=== PATIENT | female | born 1980 | race Caucasian/White ===

== ENCOUNTER 2016-05-27 11:40 | Inpatient (IN) | payer OTHER ==
--- NOTE | 2016-05-27 12:15 | OBPROG ---
OBG Progress Note Assessment/Plan: Assessment:cat 1 reactive reassuring pain well managed clear fluid intermittant monitoring declines augmentation for 8-12 h gbs negative Plan:admit/ reassess 8-12h after rom 05/27/16 12:13 Subjective: Doing well. denies contractions pain. Feeling tightening. Srom at 0900. - SVE Dilation (cm): 1 Effacement (%): Less than 50 Station: -2 Current Contraction Pattern: Irregular FHR Pattern Variability: Moderate FHR Category: 1 Membranes: SROM Amniotic Fluid Color: Clear ICD10 Worksheet Patient Problems: Problems Problem Status Onset srom at term Acute
[2016-05-27] MEDS ORDERED: LR 1,000 ML IV PRN (12:16)
[2016-05-27] MEDS ORDERED: EPSOM SALT 454 GM TP PRN (12:16)
[2016-05-27] MEDS ORDERED: LIDOCAINE 1% 30 ML SDV SC PRN (12:16)
[2016-05-27] MEDS ORDERED: OLIVE OIL 118 ML BTL MISC PRN (12:16)
[2016-05-27] MEDS ORDERED: TERBUTALINE SULFATE 1 MG/ML VIAL IV PRN (12:16)
[2016-05-27] MEDS ORDERED: OXYTOCIN/RINGERS LACTATE 1,000 ML IV PRN (12:16)
--- NOTE | 2016-05-27 12:49 | GHP ---
[f rep st] HISTORY AND PHYSICAL DATE OF ADMISSION: 05/27/2016 Patient comes into the office of [facility] on 05/27/2016 with complaints of rupture membr anes since 9:00. Rupture membranes was confirmed. Clear fluid. Positive ferning. Positive Nitraz ine. Plan of care was to Labor and delivery for delivery. The patient is a 1, para 0, 35-y ear-old, with an EDC of 05/24/2016 which gives her gestational age of 40-3/7 weeks. The patient is marsha every 3-4 minutes. Denies bloody show. Positive clear fluid. MEDICAL HISTORY: The patient has had a previous history of pancreatitis, previous history of PCOS. SURGICAL HISTORY: Tonsillectomy in years 1994, 1995 per patient, no significant problems after surg radha. GYNECOLOGICAL HISTORY: No abnormal Pap smears. Patient previous use of OCPs from the ages of [age] . HISTORY: Patient is rubella nonimmune. Patient is AMA. LABS: Patient is GBS negative. The patient is RPR nonreactive. Gonorrhea and chlamydia are negati ve. Hepatitis is negative. HIV is negative. Rubella is nonimmune. Waiting on the rest of the pre hudson, as well as labs to be drawn for blood type. ALLERGIES: Patient is not allergic to any medications. PHYSICAL ASSESSMENT: GENERAL: Patient is awake, alert, oriented x3. LUNGS: Clear bilaterally. A BDOMEN: Bowel sounds are positive in all 4 quadrants. NEUROLOGIC: DTRs are 1+ bilaterally. Charlette s sign is negative. ABDOMEN: Soft on palpation. PELVIC: Previous exam by physician Dr. Alina loya baby was cephalic. Exam was 150 and -2 on exam today in the office. PLAN OF CARE: The patient is GBS negative. We will wait for augmentation of labor for 8-12 hours p er patient request. At this time, patient would like intermittent monitoring, as well as no I V and patient is low risk. I think this is fine for plan of care. If induction is necessary, IV co ntinuous monitoring will be completed. Dr. Alina Germain is the physician responsible today since is on-call. /[id number]/MODL
[2016-05-27 15:54] LABS: % IMMATURE GRANULYOCYTES 0.5 % (0.0-1.1); ABSOLUTE IMMATURE GRANULOCYTES 0.06 10^3/uL (0.00-0.10); ADD DIFF? NO; ADD MORPH? NO; ADD SCAN? NO; ATYPICAL LYMPHOCYTE FLAG 0 (0-99); FRAGMENT RBC FLAG 0 (0-99); HEMATOCRIT 37.7 % (38.0-47.0); HEMOGLOBIN 13.2 g/dL (12.6-16.3); LEFT SHIFT FLG 0 (0-99); LIPEMIA HEMOLYSIS FLAG 90 (0-99); MEAN CELL HEMOGLOBIN 32.6 pg (27.9-34.1); MEAN CELL VOLUME 93.1 fL (81.5-99.8); MEAN PLATELET VOLUME 10.1 fL (8.7-11.7); PLATELET CLUMPS FLAG 0 (0-99); PLATELET COUNT 235 10^3/uL (150-400); RED BLOOD CELL COUNT 4.05 10^6/uL (4.18-5.33); RED CELL DISTRIBUTION WIDTH 13.2 % (11.5-15.2)
--- NOTE | 2016-05-27 17:09 | OBPROG ---
OBG Progress Note Assessment/Plan: Assessment:cat 1 reactive reassuring pain well managed clear fluid 20 minutes of monitoring before getting into the tub cat 1 exam 3-4/100/-2 cephalic marsha q2-3 minutes gbs negative Plan:expectant management of labor 05/27/16 12:13 05/27/16 17:07 Subjective: coping well. Having greater difficulty getting through the contractions reassured Objective: 05/27/16 15:45 Patient ABO/Rh AB POSITIVE 05/27/16 Unknown - SVE Dilation (cm): 3 Effacement (%): 100 Station: -2 Current Contraction Pattern: Regular FHR (bpm): 125 FHR Pattern Variability: Moderate FHR Category: 1 Membranes: SROM Amniotic Fluid Color: Clear ICD10 Worksheet Patient Problems: Problems Problem Status Onset srom at term Acute
[2016-05-27] MEDS ORDERED: AMMONIA AROMATIC 1 EACH AMP IH ONE (17:23)
[2016-05-27] MEDS ORDERED: OLIVE OIL 118 ML BTL ONE (17:23)
[2016-05-27] MEDS ORDERED: LIDOCAINE 1% 30 ML SDV ONE (17:23)
[2016-05-27] MEDS ORDERED: MISOPROSTOL 200 MCG TAB ONE (17:23)
[2016-05-27] MEDS ORDERED: TERBUTALINE SULFATE 1 MG/ML VIAL ONE (17:23)
[2016-05-27] MEDS ORDERED: ONDANSETRON 4 MG/2 ML VIAL IVP ONE (19:39)
--- NOTE | 2016-05-27 19:42 | OBPROG ---
OBG Progress Note Assessment/Plan: Assessment:135 doppler intermittant monitoring pain well managed clear fluid changing positions frequently exam 6/100/-2 cephalic marsha q2-3 minutes gbs negative nitorus for pain relief Plan:expectant management of labor 05/27/16 12:13 05/27/16 17:07 05/27/16 19:40 Subjective: Requesting pain medication to assist with pain relief. Choosing to do nitrous to assist. Call to respiratory to assist with patient use of nitrous Objective: 05/27/16 15:45 Patient ABO/Rh AB POSITIVE 05/27/16 Unknown - SVE Dilation (cm): 6 Effacement (%): 100 Station: -2 Current Contraction Pattern: Regular FHR (bpm): 135 Amniotic Fluid Color: Clear ICD10 Worksheet Patient Problems: Problems Problem Status Onset srom at term Acute
[2016-05-27] MEDS ORDERED: BUPIVACAINE 0.25% 30 ML SDV ONE (22:54)
[2016-05-27] MEDS ORDERED: fentaNYL 2MCG/ML/BUP 0.1% RTU 100 ML BAG EP ONE (22:54)
[2016-05-27] MEDS ORDERED: PHENYLEPHRINE HCL 100 MCG/ML SYR ONE (22:55)
[2016-05-27] MEDS ORDERED: fentaNYL 100 MCG/2 ML INJ ONE (22:55)
[2016-05-27] MEDS ORDERED: PHENYLEPHRINE HCL 100 MCG/ML SYR IVP PRN (23:38)
[2016-05-27] MEDS ORDERED: ONDANSETRON 4 MG/2 ML VIAL IVP PRN (23:38)
[2016-05-27] MEDS ORDERED: NALOXONE HCL 0.4 MG/ML INJ IVP PRN (23:38)
[2016-05-27] MEDS ORDERED: fentaNYL 2MCG/ML/BUP 0.1% RTU 100 ML EP SCH (23:45)
[2016-05-27] MEDS ORDERED: LR 500 ML IV SCH (23:45)
--- NOTE | 2016-05-27 23:56 | OBPROG ---
OBG Progress Note Assessment/Plan: Assessment:continuous monitoring pain well managed after epidural clear fluid changing positions frequently exam 8/90/0 cephalic marsha q2-3 minutes gbs negative OP epidural crawl for position change Plan:expectant management of labor 05/27/16 12:13 05/27/16 17:07 05/27/16 19:40 05/27/16 23:54 Subjective: Epidural for pain relief at patient request Objective: 05/27/16 15:45 Patient ABO/Rh AB POSITIVE 05/27/16 Unknown - SVE Dilation (cm): 8 Effacement (%): 90 Station: -1 Current Contraction Pattern: Regular FHR Pattern Variability: Moderate FHR Category: 1 Membranes: Intact ICD10 Worksheet Patient Problems: Problems Problem Status Onset srom at term Acute
--- NOTE | 2016-05-28 01:29 | OBPROG ---
OBG Progress Note Assessment/Plan: Assessment:continuous monitoring pain well managed after epidural clear fluid changing positions frequently exam 9/90/0 cephalic marsha q2-3 minutes gbs negative OP late deceleration noted exam some change in cervix will recheck when feeling some pressure cat 2 fhr Plan:expectant management of labor 05/27/16 12:13 05/27/16 17:07 05/27/16 19:40 05/27/16 23:54 05/28/16 01:26 05/28/16 01:28 Subjective: Comfortable with epidural Objective: 05/27/16 15:45 Patient ABO/Rh AB POSITIVE 05/27/16 Unknown - SVE Dilation (cm): 9 Effacement (%): 90 Station: 0 Current Contraction Pattern: Regular FHR (bpm): 145 FHR Pattern Variability: Moderate FHR Category: 2 Membranes: SROM Amniotic Fluid Color: Clear ICD10 Worksheet Patient Problems: Problems Problem Status Onset srom at term Acute
[2016-05-28] MEDS ORDERED: ACETAMINOPHEN 500 MG TAB PO ONE (04:49)
[2016-05-28] MEDS ORDERED: OXYTOCIN/RINGERS LACTATE 500 ML IV SCH (05:00)
[2016-05-28] MEDS ORDERED: GENTAMICIN PHARMACY TO DOSE MISC SCH (05:00)
--- NOTE | 2016-05-28 05:01 | OBPROG ---
OBG Progress Note Assessment/Plan: Assessment:continuous monitoring pain well managed with epidural clear fluid changing positions frequently exam / cephalic caput and molding with this exam marsha q3-5 minutes iupc placed to assist with measurement of the strength of the contraction gbs negative OP prolonged variable deceleration with exam consult dr. trevor davis cat 2 fhr febrile Plan:pitocin per protocol, antibiotics for prolonged rom, tylenol 1g now 05/27/16 12:13 05/27/16 17:07 05/27/16 19:40 05/27/16 23:54 05/28/16 01:26 05/28/16 01:28 05/28/16 04:57 Subjective: patient numb with epidural. Legs very heavy warm to the touch with exam Objective: 05/27/16 15:45 Patient ABO/Rh AB POSITIVE 05/27/16 Unknown - SVE Dilation (cm): 9 Effacement (%): 90 Station: 0 Current Contraction Pattern: Regular FHR (bpm): 145 FHR Pattern Variability: Moderate FHR Category: 2 Amniotic Fluid Color: Blood Tinged ICD10 Worksheet Patient Problems: Problems Problem Status Onset srom at term Acute
[2016-05-28] MEDS ORDERED: NS 100 ML BAG (MINI-BAG) IV ONE (05:07)
[2016-05-28] MEDS: AMPICILLIN SODIUM 2 GM in NS 100 ML IV SCH ×4 (05:12→23:46)
[2016-05-28] MEDS ORDERED: GENTAMICIN 80 MG/NACL 100 ML IV SCH (05:30)
[2016-05-28] MEDS: GENTAMICIN SULFATE IV SCH (05:51)
[2016-05-28] MEDS: D5W IV SCH (05:51)
--- NOTE | 2016-05-28 09:23 | OBPROG ---
OBG Progress Note Assessment/Plan: Assessment: Plan: Subjective: I was called into the room to evaluate patient after a decel to the 50s. pitocin was at 8 mu. pitocin was off. return to baseline with good variability. meconium fluid noted. patient very tearful and frustrated. worried that getting an epidural was the cause of this. reassurance given. will restart pitocin as needed and continue repositioning. discussed will only do a c section if absolutely indicated. Objective: 05/27/16 15:45 Patient ABO/Rh AB POSITIVE 05/27/16 Unknown - SVE Dilation (cm): 8 Effacement (%): 90 Station: -1 Current Contraction Pattern: Regular FHR Pattern Variability: Moderate FHR Category: 2 ICD10 Worksheet Patient Problems: Problems Problem Status Onset srom at term Acute
--- NOTE | 2016-05-28 11:19 | OBPROG ---
OBG Progress Note Assessment/Plan: Assessment: Plan: Subjective: patient was feeling more pressure. status was reassuring. SVE 8/100/- 1. narrow pubic arch and prominent ischial spines. large amount of thick meconium stained fluid noted. fhts decels to 70s with return to baseline after two minutes. fhts returned to baseline. pitocin. long discussion with patient and her about management options. initially decided that they wanted to restart pitocin when able and wait 2 more hours and reassess. shortly after that variable decels with contractions noted. decles to the 80s. contractions still very spaced and would need pitocin but because of decels it is not safe to start. discussed suspected cpd and intolerance of labor. will proceed with PLTCS. Objective: 05/27/16 15:45 Patient ABO/Rh AB POSITIVE 05/27/16 Unknown - SVE Dilation (cm): 8 Effacement (%): 90 Station: -2 Current Contraction Pattern: Irregular FHR Category: 2 Amniotic Fluid Color: Meconium Stained-Heavy ICD10 Worksheet Patient Problems: Problems Problem Status Onset srom at term Acute
[2016-05-28] MEDS ORDERED: LIDO/EPI 2% **for epidural** 20 ML SDV ONE ×2 (11:27→13:15)
[2016-05-28] MEDS ORDERED: fentaNYL 100 MCG/2 ML INJ ONE (11:28)
[2016-05-28] MEDS ORDERED: ceFAZolin 2 GM/DEXTROSE 100 ML IV ONE (11:59)
[2016-05-28] MEDS ORDERED: CEFAZOLIN 2 GM/DEXTROSE/100 ML BAG IV ONE (11:59)
[2016-05-28] MEDS ORDERED: LR 500 ML IV ONE (11:59)
[2016-05-28] MEDS ORDERED: CITRIC ACID/SODIUM CITRATE 30 ML UDCUP PO ONE (11:59)
[2016-05-28] MEDS ORDERED: LR 1,000 ML IV SCH (12:00)
[2016-05-28] MEDS ORDERED: DEXAMETHASONE 4 MG/ML VIAL ONE (12:23)
[2016-05-28] MEDS ORDERED: morphINE PF 5 MG/10 ML INJ ONE (12:23)
[2016-05-28] MEDS ORDERED: OXYTOCIN 100 UNITS/10 ML VIAL ONE ×2 (12:23→12:48)
[2016-05-28] MEDS ORDERED: ONDANSETRON 4 MG/2 ML VIAL ONE (12:49)
[2016-05-28] MEDS ORDERED: NALOXONE HCL 0.4 MG/ML INJ IVP PRN (14:46)
[2016-05-28] MEDS ORDERED: PHENYLEPHRINE HCL 100 MCG/ML SYR IVP PRN (14:46)
[2016-05-28] MEDS ORDERED: ONDANSETRON 4 MG/2 ML VIAL IVP PRN (14:46)
--- NOTE | 2016-05-28 14:49 | POSTANESTH ---
Post Anesthetic Evaluation Cardiovascular Status: Normal, Stable Respiratory Status: Normal, Stable, Similar to Pre-op Cond. Level of Consciousness/Mental Status: Can Participate in Eval, Alert and Oriented Pain Control: Adequate, Prn Tx Ordered Nausea/Vomiting Control: Adequate, Prn Tx Ordered Complications Possibly Related to Anesthesia: None Noted (Epidural dosed for C Section, BP treated, comfortable for surgery, to PACU, no pain or nausea.)
--- NOTE | 2016-05-28 15:53 | GOP ---
[f rep st] OPERATIVE REPORT DATE OF OPERATION: SURGEON: Andre Toth MD PLUMBING INSTRUCTOR: Yolanda Plaza DO was the customer care assistant in this closure. ANESTHESIOLOGIST: Mariano provided general anesthesia. PREOPERATIVE DIAGNOSIS: Cystotomy POSTOPERATIVE DIAGNOSIS: Cystotomy PROCEDURE PERFORMED: Intra op consult and cystorophy FINDINGS: INDICATIONS: I have been asked intraoperatively to see this lady during a C- section where there was a concern about having a cystotomy during the procedure. DESCRIPTION OF PROCEDURE: The , by the sounds of it, was uneventful, but when they fill her bladder, there is some leakage of fluid from a small area at the dome of the bladder well away from the cervix and well away from the lateral margin of the bladder. After visualization and examination and review of the patient's history, it was felt that this should be repaired, and when irrigated the bladder, there was no bleeding or clots noted in the bladder. There appeared to be no significant area or potential for ureteral injury or trigonal injury since this was at the dome of the bladder, well above the cervix, and at that point, after identifying the area, she had an area of the bleeding site on the right lateral side of the bladder and uterus, and that was oversewn with a 3-0 Vicryl, and then I attempted to do a 2-layer closure of the bladder with a 3-0 Vicryl, and so that the suture lines not be imbricated over one another Dr. Plaza placed some tissue on the anterior part of the uterus over that suture line so that they would not be overlying. At the present time , with the small cystotomy and closure, I had recommended that the patient have the bladder drainage for least 5 days. A cystogram probably is not necessary, but if desired, it would be able to have that done. I would be happy to see the patient in the office or postoperatively if needed, and no specimens obtained for my part of the procedure, and I felt there was no indications at the present time to do a cystoscopy on this patient due to the locale of the injury. Should duly be impressed with the fact that this was found intraoperatively instead of being found postoperatively and the care was very well attentioned to. /[id number]/MODL MTDD
[2016-05-28] MEDS ORDERED: POLYETHYLENE GLYCOL 3350 17 GM PKT PO PRN (16:32)
[2016-05-28] MEDS ORDERED: BISACODYL 10 MG SUPP PR PRN (16:32)
[2016-05-28] MEDS ORDERED: ACETAMINOPHEN 325 MG TAB PO PRN (16:32)
[2016-05-28] MEDS ORDERED: LACTULOSE 20 GM/30 ML UDCUP PO PRN (16:32)
[2016-05-28] MEDS ORDERED: MAGNESIUM HYDROXIDE 30 ML UDCUP PO PRN (16:32)
[2016-05-28] MEDS: KETOROLAC 30 MG/1 ML SDV IVP PRN ×2 (16:34→22:47)
[2016-05-28] MEDS ORDERED: PROMETHAZINE HCL 25 MG TAB PO ONE (17:30)
[2016-05-28 18:22] LABS: % IMMATURE GRANULYOCYTES 0.9 % (0.0-1.1); ABSOLUTE IMMATURE GRANULOCYTES 0.26 10^3/uL (0.00-0.10); ADD DIFF? NO; ADD MORPH? NO; ADD SCAN? NO; ATYPICAL LYMPHOCYTE FLAG 0 (0-99); FRAGMENT RBC FLAG 0 (0-99); HEMATOCRIT 30.8 % (38.0-47.0); LEFT SHIFT FLG 20 (0-99); LIPEMIA HEMOLYSIS FLAG 90 (0-99); MEAN CELL HEMOGLOBIN 33.6 pg (27.9-34.1); MEAN CELL HEMOGLOBIN CONCENTR. 35.7 g/dL (32.4-36.7); MEAN CELL VOLUME 94.2 fL (81.5-99.8); MEAN PLATELET VOLUME 10.5 fL (8.7-11.7); PLATELET CLUMPS FLAG 0 (0-99); PLATELET COUNT 176 10^3/uL (150-400); RED BLOOD CELL COUNT 3.27 10^6/uL (4.18-5.33)
--- NOTE | 2016-05-28 19:10 | OBPROC ---
- Delivery Pre-op Diagnoses: IUP at 40 3/7, meconium fluid, arrest of dilation and descent , intolerance of labor, intrapartum temperature Post-op Diagnoses: same plus intraoperative bladder injury Procedure: Primary, Low Transverse Surgeon: Yolanda Plaza Manager Entry: Karime Cota Anesthesiologist: Osmar Quintana Anesthesia: Epidural EBL: 800 - Info A Delivery Date: 05/28/16 Delivery Time: 12:33 Sex of Infant: Female Score (1 Min): 8 Score (5 Min): 9
--- NOTE | 2016-05-28 19:17 | SOAPPROG ---
SOAP Progress Note Assessment/Plan: Assessment: pod# 0 s/p PLTCS and repair of bladder cystotomy breast feeding Plan: leave reyes in place routine post operative and post care 05/28/16 19:12 Subjective: patient is doing well. pain is well controlled. normal lochia. working on breast feeding. long discussion about labor course, intraoperative course and bladder repair. stood up at bedside. tolerating diet. Objective: Vital Signs Temp Pulse Resp BP Pulse Ox 36.7 C 74 16 112/66 97 05/28/16 18:23 05/28/16 18:23 05/28/16 18:23 05/28/16 18:23 05/28/16 18:23 Laboratory Results 05/28/16 18:15 05/27/16 05/28/16 05/29/16 05:59 05:59 05:59 Intake Total 3260 Output Total 2550 Balance 710 Physical Exam - Physical Exam General Appearance: WD/WN, alert, no apparent distress Respiratory: chest non-tender, lungs clear, normal breath sounds Cardiac/Chest: normal peripheral pulses, regular rate, rhythm Abdomen: normal bowel sounds, non-tender, soft, other (fundus firm and non tender) Skin: normal color, warm/dry Extremities: normal range of motion, non-tender, normal inspection, normal capillary refill Neuro/Psych: no motor/sensory deficits, alert, normal mood/affect, oriented x 3 ICD10 Worksheet Patient Problems: Problems Problem Status Onset srom at term Acute
--- NOTE | 2016-05-28 20:38 | GOP ---
[f rep st] OPERATIVE REPORT DATE OF OPERATION: 05/28/2016 SURGEON: Yolanda Plaza DO KILN PACKER: EDWARD Rosas. ANESTHESIA: Epidural with Duramorph. ANESTHESIOLOGIST: Osmar Quintana M.D. PREOPERATIVE DIAGNOSIS: 1. Intrauterine at 40-3/7 weeks' gestation. 2. Meconium-stained fluid. 3. Arrest of dilation and descent. 4. intolerance of labor. 5. Intrapartum temperature. POSTOPERATIVE DIAGNOSIS: 1. Intrauterine at 40-3/7 weeks' gestation. 2. Meconium-stained fluid. 3. Arrest of dilation and descent. 4. intolerance of labor. 5. Intrapartum temperature. 6. Intraoperative bladder injury which was repaired at that time. 7. Occiput posterior presentation and cephalopelvic disproportion. PROCEDURE PERFORMED: Primary low transverse section. FINDINGS: 1. Viable 8 pound 4 ounce female infant in the occiput posterior presentation, delivered at 1233 a. m. Apgars were 9 and 9. 2. Intact placenta with 3-vessel cord. 3. Normal ovaries, uterus and tubes. 1. Intraoperative finding of a small cystotomy which was repaired intraoperatively. ESTIMATED BLOOD LOSS: 800 cc. INDICATIONS: Patient is a 35-year-old 1, para 0, who is 40-3/7 weeks' gestation. She prese nted to [facility] yesterday with complaint of rupture of membrane since 9 a.m. She was n oted to be grossly ruptured with positive Nitrazine. She was 1 cm dilated, 50% effaced, and -2 stat ion. The patient waited expectantly for initiation of labor, but it did not start so she was starte d on Pitocin. Patient did progress into active labor. She did spike a temperature and was started on ampicillin and gentamicin and did progress to 8 cm dilated at which time did request and receive an epidural which provided adequate pain relief. Baby had intermittent episodes of large decelerations, but overall was reassuring. After a prolonge d deceleration, she was repositioned and Pitocin was discontinued and status was reassuring so we restarted the Pitocin. She had an intrauterine pressure catheter placed and we monitored contra ctions and we had a difficult time getting her to have adequate contractions as baby would have sign ificant decelerations. Pelvic exam was performed by myself on arriving to labor and delivery on the morning of 05/28. She was 8 cm dilated and minus 1 station and a very narrow pelvis was noted. We did continue managi ng the patient with Pitocin and close observation of the heart tracings. She 2 additional epi sodes of decelerations during which time the Pitocin was discontinued and she was repositioned. Mec onium stained fluid was also noted. I checked her several hours later and we had a long discussion about her lack of cervical change, but not having quite adequate contractions. The plan was to continue to increase Pitocin and recheck in 2 hours and if no changes made at that t himanshu, proceed with a primary low transverse section. However, she began having repetitive d ecelerations with contractions and the decision was made to proceed with a primary low transverse ce sarean section at that time. Risks and benefits were extensively reviewed with the patient. The ranjit villeda was properly consented. DESCRIPTION OF PROCEDURE: The patient was taken to the operating room with intravenous fluids in pl sruthi. She was then placed on the operating room table in the dorsal supine position and her epidural was rebolused. A Harris catheter was already in place. Venodynes were on her lower extremities and she was then prepped and draped in the normal sterile fashion. Anesthesia was assessed and found t o be adequate. A Pfannenstiel skin incision was then made 2 fingerbreadths above the pubic symphysi s. The incision was then carried through to the underlying layer of fascia with the Bovie. The fas amber was then nicked in the midline and the fascial incision was extended laterally. The superior as pect of the fascial incision was then grasped with the Kochers, tented up, and the underlying rectus muscle dissected off bluntly with the Bovie. Attention was then turned to the inferior aspect of the fascial incision, which in a similar fashion was grasped with the Kochers, tented up, and the underlying rectus muscle dissected off bluntly wit h the Bovie. The rectus muscle was then in the midline. The peritoneum was then identifi ed, tented up, and entered sharply with the Metzenbaum scissors. The incision was extended superior ly and inferiorly with excellent visualization of the bladder. The bladder blade was then inserted. The vesicouterine peritoneum was identified, tented up, and entered sharply with the Metzenbaum sc issors. The incision was extended laterally and the bladder flap was created digitally. The bladde r blade was then reinserted. The lower uterine segment was noted to be very distended. The uterus was then incised in a low-transverse fashion and extended laterally. The 's head was noted to be in the occiput posterior presentation and was delivered through th e incision without difficulty. The remainder of the was delivered without difficulty. Cord was clamped x2 and cut. Cord blood was obtained. The was handed off to awaiting nu rse practitioner. Intact placenta with 3-vessel cord delivered without difficulty. The uterus was then exteriorized a nd cleared of all clots and debris and wrapped in a moist laparotomy sponge. The bladder blade was then reinserted. The uterine incision was then grasped with Almaraz clamps and a hysterotomy was close d with 0 Vicryl in a running, locked fashion. A 2nd 0 Vicryl stitch was used to imbricate the uteri ne incision. At that time, a small amount of clear fluid was noted along the uterine incision and q uestion for incorporation of the bladder into the hysterotomy was raised, so I undid the suture line and backfilled the bladder with sterile formula and a small extravasation of the formula was noted in the dome of the bladder. An intraoperative consult with Dr. oTth was done and he came in and oversewed the serosa of the adolfo dder with 3-0 Vicryl on an . This will be dictated separately by Dr. Toth. The bladder was then backfilled again and no additional extravasation of formula was noted. The hysterotomy had been cl osed with a running locked 0 Vicryl stitch suture just before the bladder was repaired. Following c ompletion of the repair of the bladder, a 2nd 0 Vicryl stitch was used to imbricate the hysterotomy closure, taking care to be remote from the bladder. Hemostasis was assured. The uterus was then re turned to the patient's abdomen. Gutters were cleared of all clots and debris. The hysterotomy rem ained hemostatic. The clamp was taken off the Harris catheter and the bladder was drained. The peritoneum was then reapproximated with 3-0 Vicryl in a running fashion. Rectus muscle was reap proximated with 2-0 Vicryl in a running fashion. Fascia was closed with 0 Vicryl in a running fashi on. Subcuticular tissue was closed with 3-0 Vicryl in a running fashion. The skin was then closed with keyonna. The sponge, lap, and needle count were correct x2. Patient was transported to [facility] room in stable condition. INTRAOPERATIVE CONSULT: Dr. Toth. /[id number]/MODL
[2016-05-28] MEDS: SENNOSIDES/DOCUSATE SODIUM TAB PO SCH ×2 (21:23→23:00)
[2016-05-29] MEDS: GENTAMICIN SULFATE IV SCH (03:23)
[2016-05-29] MEDS: D5W IV SCH (03:23)
[2016-05-29] MEDS: AMPICILLIN SODIUM 2 GM in NS 100 ML IV SCH (03:24)
[2016-05-29] MEDS: KETOROLAC 30 MG/1 ML SDV IVP PRN ×3 (04:23→18:09)
--- NOTE | 2016-05-29 08:55 | SOAPPROG ---
SOAP Progress Note Assessment/Plan: Assessment: breastfeeeing with some frustration pain well managed ff@u scant rubra lochia bandage remains to perineum reyes to remain in bladder for several days QS yellow urine denies passing gas Plan:po day 1 expectant management/ education on ways to assist with passing gas verbalized understanding 05/27/16 12:13 05/27/16 17:07 05/27/16 19:40 05/27/16 23:54 05/28/16 01:26 05/28/16 01:28 05/28/16 04:57 05/29/16 08:53 Subjective: Teary when talking about delivery. Attempt to discuss to assist with resolution of delivery process. Objective: Vital Signs Temp Pulse Resp BP Pulse Ox 36.4 C 62 16 93/62 L 94 05/29/16 04:26 05/29/16 04:26 05/29/16 04:26 05/29/16 04:26 05/29/16 04:26 Laboratory Results 05/29/16 04:30 05/28/16 05/29/16 05/30/16 05:59 05:59 05:59 Intake Total 3260 Output Total 3650 Balance -390 - Time Spent With Patient Time Spent With Patient: 15 minutes - Pending Discharge Pending Discharge Within 48 Hours: Yes Pending Discharge Date: 05/31/16 Pending Discharge Time: 11:00 Physical Exam - Physical Exam General Appearance: WD/WN, alert, no apparent distress Respiratory: chest non-tender, lungs clear, normal breath sounds Cardiac/Chest: regular rate, rhythm Abdomen: other (diminished bowel sounds) Pelvic Exam: vaginal bleeding (scant rubra lochia) Skin: normal color, warm/dry Extremities: normal range of motion, Charlette's sign (negative bilaterally) Neuro/Psych: no motor/sensory deficits, alert, normal mood/affect, oriented x 3 ICD10 Worksheet Patient Problems: Problems Problem Status Onset srom at term Acute
[2016-05-29] MEDS: DOCUSATE SODIUM 100 MG CAP PO PRN (09:03)
[2016-05-29] MEDS: IRON POLYSAC/IRON HEME 28 MG TAB PO SCH ×2 (11:10→19:43)
[2016-05-29] MEDS: HYDROCODONE/APAP 5/325 TAB PO PRN ×2 (19:43→22:11)
[2016-05-29] MEDS: SENNOSIDES/DOCUSATE SODIUM TAB PO SCH (19:43)
[2016-05-29] MEDS: SIMETHICONE 80 MG TAB CHEW PO PRN (20:41)
[2016-05-30] MEDS: IBUPROFEN 600 MG TAB PO PRN ×4 (00:12→22:36)
[2016-05-30] MEDS: HYDROCODONE/APAP 5/325 TAB PO PRN ×5 (00:13→22:36)
[2016-05-30] MEDS: IRON POLYSAC/IRON HEME 28 MG TAB PO SCH ×2 (08:49→20:58)
--- NOTE | 2016-05-30 10:29 | SOAPPROG ---
SOAP Progress Note Assessment/Plan: Assessment: pod# 2 s/p PLTCS and repair of bladder cystotomy breast feeding anemia - on iron long hx of GI issues - had two bowel movements yesterday. restarted probiotics Plan: leave reyes in place routine post operative and post care 05/30/16 10:27 Subjective: patient is doing ok. pain is well controlled. feels better now that she has had two bowel movements. is exhausted. still anxious about a lot of things but doing better. working on breast feeding. denies headache and changes in vision. ambulating. reyes still in place. had a small amount of blood in catheter bag after straining to have a bowel movement Objective: Vital Signs Temp Pulse Resp BP Pulse Ox 36.4 C 78 18 114/73 95 05/30/16 00:03 05/30/16 00:03 05/30/16 00:03 05/30/16 00:03 05/30/16 00:03 Laboratory Results 05/29/16 04:30 05/29/16 05/30/16 05/31/16 05:59 05:59 05:59 Intake Total 3260 Output Total 3650 2650 500 Balance -390 -2650 -500 Physical Exam - Physical Exam General Appearance: WD/WN, alert, no apparent distress Respiratory: chest non-tender, lungs clear, normal breath sounds Cardiac/Chest: normal peripheral pulses, regular rate, rhythm Abdomen: normal bowel sounds, non-tender, soft, other (fundus firm and non tender) Skin: normal color, warm/dry, other (incicion clean dry and intact) Lymphatic: no adenopathy Extremities: normal range of motion, non-tender, normal inspection, normal capillary refill Neuro/Psych: no motor/sensory deficits, alert, normal mood/affect, oriented x 3 ICD10 Worksheet Patient Problems: Problems Problem Status Onset srom at term Acute
[2016-05-30] MEDS: SIMETHICONE 80 MG TAB CHEW PO PRN (16:25)
[2016-05-30] MEDS: SENNOSIDES/DOCUSATE SODIUM TAB PO SCH ×2 (17:55→21:01)
[2016-05-30] MEDS: DOCUSATE SODIUM 100 MG CAP PO PRN (21:00)
[2016-05-31] MEDS: HYDROCODONE/APAP 5/325 TAB PO PRN ×6 (03:29→21:57)
[2016-05-31] MEDS: IBUPROFEN 600 MG TAB PO PRN ×3 (06:09→18:45)
--- NOTE | 2016-05-31 08:04 | SOAPPROG ---
SOAP Progress Note Assessment/Plan: Assessment: 35y/o @day 3 Plan: Con't routine PP care Routine cath care PO iron consultation Anticipate discharge tmrw 06/0105/31/16 07:57 Subjective: Pt resting in bed with baby at bedside. Pt having difficulty with learning process of care, coming to terms with new normal. Reports difficulties d/t reyes cath and inability to sit up to feed, will have second consult later today. Pain/irritation at cath site but understands need to maintain for another day. Denies difficulty voiding, +BM. Declines BC , FOB plans vasectomy. Objective: Vital Signs Temp Pulse Resp BP Pulse Ox 36.6 C 85 16 103/66 98 05/30/16 19:36 05/30/16 19:36 05/30/16 19:36 05/30/16 19:36 05/30/16 19:36 Laboratory Results 05/29/16 04:30 05/30/16 05/31/16 06/01/16 05:59 05:59 05:59 Output Total 2650 3250 Balance -2650 -3250 Physical Exam - Physical Exam General Appearance: alert, no apparent distress Respiratory: lungs clear, normal breath sounds Cardiac/Chest: regular rate, rhythm Abdomen: non-tender, soft, other (fundus firm @U-1) Skin: normal color, warm/dry Extremities: pedal edema (+1 BLE) Neuro/Psych: alert, normal mood/affect, oriented x 3 ICD10 Worksheet Patient Problems: Problems Problem Status Onset srom at term Acute
[2016-05-31] MEDS: IRON POLYSAC/IRON HEME 28 MG TAB PO SCH ×2 (12:39→21:57)
[2016-05-31] MEDS: SENNOSIDES/DOCUSATE SODIUM TAB PO SCH ×2 (13:44→21:57)
[2016-05-31] MEDS: SIMETHICONE 80 MG TAB CHEW PO PRN (14:26)
[2016-05-31 21:13] VITALS: O2SAT 96
[2016-05-31 21:15] VITALS: BP 116/76; PULSE 63; RESP 16; TEMP 97.6
[2016-06-01] MEDS: IBUPROFEN 600 MG TAB PO PRN ×4 (01:05→18:44)
[2016-06-01] MEDS: HYDROCODONE/APAP 5/325 TAB PO PRN ×4 (02:39→15:28)
[2016-06-01] MEDS: IRON POLYSAC/IRON HEME 28 MG TAB PO SCH (10:20)
[2016-06-01] MEDS: DOCUSATE SODIUM 100 MG CAP PO PRN (10:20)
[2016-06-01] MEDS: SENNOSIDES/DOCUSATE SODIUM TAB PO SCH (10:21)
--- NOTE | 2016-06-01 12:15 | SOAPPROG ---
SOAP Progress Note Assessment/Plan: Assessment: POD 5 s/p primary C/S with cystotomy with primary closure by Dr Toth Ready for d/c Awaiting Dr Toth's recs on the reyes Plan: d/c home today, script for Mobile and rec iron and ibu prn 06/01/16 12:10 Subjective: Pt doing ok - she and bartolo state they haven't slept in 3 days - baby doing grazing pattern - milk is coming in. Baby is latching well per RNs. Pain controlled with [facility] - still using 2 q 4 hrs - rec trying to reduce that to 1 q4hrs. urinating fine. Is wanting to know plan from urology and awaiting Dr Toth's call back. She and bartolo feel they might like f/u with his office to discuss everything. Objective: Vital Signs Temp Pulse Resp BP Pulse Ox 36.4 C 63 16 116/76 96 05/31/16 20:00 05/31/16 20:00 05/31/16 20:00 05/31/16 20:00 05/31/16 20:00 Laboratory Results 05/29/16 04:30 05/31/16 06/01/16 06/02/16 05:59 05:59 05:59 Output Total 3250 2000 Balance -3250 -1999 Physical Exam - Physical Exam General Appearance: WD/WN Abdomen: non-tender, soft, other (incision CDI, FF at umb -2) Pelvic Exam: vaginal bleeding (normal lochia) Extremities: non-tender, pedal edema (minimal) Neuro/Psych: normal mood/affect ICD10 Worksheet Patient Problems: Problems Problem Status Onset Bladder injury, closed Acute delivery delivered Acute srom at term Acute
[2016-06-01] MEDS: SIMETHICONE 80 MG TAB CHEW PO PRN (15:29)
== END 2016-06-01 22:00 | disposition home or self-care (01) | DRG 765 ==
LOC: FLD 11:40 → FOB 05-28 16:37
PROVIDERS: ADMIT Advanced Practice Midwife; ATTEND Obstetrics & Gynecology
PROC: 10D00Z1 Extraction of Products of Conception, Low, Open Approach (ICD-10-PCS; principal; 2016-05-28)
PROC: 0TQB0ZZ Repair Bladder, Open Approach (ICD-10-PCS; principal; 2016-05-28)
PROC: 4A1J7BZ Monitoring of Products of Conception, Nervous Pressure, Via Natural or Artificial Opening (ICD-10-PCS; principal; 2016-05-28)
DX: O76 Abnormality in fetal heart rate and rhythm complicating labor and delivery (principal); O71.5 Other obstetric injury to pelvic organs; O77.0 Labor and delivery complicated by meconium in amniotic fluid; O62.0 Primary inadequate contractions; O48.0 Post-term pregnancy; Z3A.40 40 weeks gestation of pregnancy; Z37.0 Single live birth
CPT/HCPCS: J0290; J0690; J1100; J1200; J1885; J2274; J2370; J2405; J2590; J3010; J3105